=== PATIENT | female | born 2000 | race Caucasian/White ===

== ENCOUNTER 2019-04-26 02:36 | Emergency (ER) | payer SELFPAY ==
[2019-04-26] MEDS ORDERED: Ondansetron PF 4 MG/2 ML Vial ONE (02:45)
== END 2019-04-26 05:10 | disposition home or self-care (01) ==
LOC: ERS 02:36
DX: F10.129 Alcohol abuse with intoxication, unspecified (principal)
CPT/HCPCS: 96361; 96374; J2405